=== PATIENT | male | born 1935 | race Caucasian/White ===

== ENCOUNTER 2016-12-25 08:53 | Day surgery (SDC) | payer MEDICARE, BC ==
[~2016-12-25 08:53] MED LIST: LIDOCAINE HCL 1% MPF SOL ONE; PROPOFOL 500 MG/50 ML EMU IV ONE
[2016-12-25 11:52] VITALS: BP 154/64; PULSE 60; RESP 20; TEMP 97.4; O2SAT 100
== END 2016-12-25 12:22 | disposition home or self-care (01) | DRG 812 ==
LOC: SURG 08:53
PROVIDERS: ATTEND Surgery
DX: D50.9 Iron deficiency anemia, unspecified (principal); K31.7 Polyp of stomach and duodenum; Z87.19 Personal history of other diseases of the digestive system; K44.9 Diaphragmatic hernia without obstruction or gangrene
CPT/HCPCS: J2001; J2704